=== PATIENT | male | born 1950 | race Caucasian/White ===

== ENCOUNTER 2023-08-04 05:37 | Observation (INO) ==
[2023-08-04] MEDS ORDERED: Lactated Ringers 1000 ml BAG 1,000 ML IV SCH ×2 (06:00→12:00)
[2023-08-04] MEDS ORDERED: BUPIVACAINE **LIPOSOME/PF 13.3 MG/ML (266MG/ 20ML) VIAL (RESTRICTED) INFIL ONE (06:00)
[2023-08-04] MEDS ORDERED: Buffered Lidocaine 1% SYRIN 1 ml INTRADERM ONE (06:00)
[2023-08-04] MEDS ORDERED: Tranexamic Acid 1 GM/100ML BAG 2,000 MG/200 ML BAG IV ONE (06:14)
[2023-08-04] MEDS ORDERED: ceFAZolin 2 GM in NS PREMIX 2 GM/100 ML BAG IVPB ONE (06:14)
[2023-08-04 06:23] LABS: Rapid COVID-19 Molecular Undetected (Undetected)
[2023-08-04] MEDS ORDERED: Bupivacaine 0.25% SDV 30 ML ONE (06:52)
[2023-08-04] MEDS ORDERED: Midazolam 2 mg/2 ml VIAL 1 mg/ml 2 ml VIAL (2 mg) ONE ×2 (07:22→09:33)
[2023-08-04] MEDS ORDERED: Lidocaine 2% PF 5 ML VIAL ONE (07:23)
[2023-08-04] MEDS ORDERED: Naloxone 0.4 mg VIAL 0.4 mg/ml 1 ml VIAL IV PRN (08:14)
[2023-08-04] MEDS ORDERED: fentaNYL 100 mcg/2 ml 50 MCG/ML VIAL IV PRN (08:14)
[2023-08-04] MEDS ORDERED: Prochlorperazine 5 mg/ml 2 ml VIAL (10 mg) IV PRN (08:14)
[2023-08-04] MEDS ORDERED: Morphine 4 MG/ML VIAL (1 ml) IV PRN (08:14)
[2023-08-04] MEDS ORDERED: Phenylephrine IV 10 MG/ML 1 ml VIAL ONE (08:21)
[2023-08-04] MEDS ORDERED: Acetaminophen IV 1 GM/100ML 1,000 MG/100 ML BAG IV ONE (08:51)
[2023-08-04] MEDS ORDERED: Propofol 10 MG/ML 20 ML BTL ONE (11:00)
[2023-08-04] MEDS ORDERED: Ondansetron 4 mg VIAL 2 MG/ML 2 ml VIAL IV PRN (11:26)
[2023-08-04] MEDS ORDERED: Morphine 2 MG/ML SYRINGE IV PRN (11:26)
[2023-08-04] MEDS ORDERED: Lactulose 30 ml UDC PO PRN (11:26)
[2023-08-04] MEDS ORDERED: Magnesium Hydroxide LIQ 30 ML UDC PO PRN (11:26)
[2023-08-04] MEDS ORDERED: Ondansetron ODT 4 mg TAB 4 MG TAB PO PRN (11:26)
[2023-08-04 13:55] VITALS: BP 127/82
[2023-08-04] MEDS ORDERED: ceFAZolin 1 GM ADVAN 1 GM in NS 0.9% 50 ML 50 ML IVPB SCH (16:00)
[2023-08-04] MEDS ORDERED: Mometasone/Formoter 100/5 MDI INH SCH (19:00)
[2023-08-04] MEDS ORDERED: Magnesium Hydroxide LIQ 30 ML UDC PO SCH (21:00)
[2023-08-05] MEDS ORDERED: Vitamin THERAPEUTIC TAB PO SCH (09:00)
== END 2023-08-04 17:40 | disposition home or self-care (01) ==
LOC: OR 05:37 → SSU 05:37
PROVIDERS: ADMIT Orthopaedic Surgery Sports Medicine; ATTEND Orthopaedic Surgery Sports Medicine